=== PATIENT | male | born 1965 | race Caucasian/White ===

== ENCOUNTER 2020-09-02 14:06 | Inpatient (IN) | payer MEDICARE ==
[~2020-09-02] VITALS: Ht 177.8 cm; Wt 112.2 kg
[2020-09-02 15:42] LABS: HEMOGLOBIN 15.1 gm/dl (14.0-17.5); RED BLOOD COUNT 4.66 M/UL (4.20-5.50); WHITE BLOOD COUNT 11.3 K/UL (4.5-11.0)
[2020-09-02 15:58] LABS: BUN/CREATININE RATIO 30 (0-10)
[2020-09-02] MEDS ORDERED: LOPRESSOR 25 MG25 MG PO (21:21)
[2020-09-02] MEDS ORDERED: XARELTO20 MG PO (21:21)
[2020-09-02] MEDS ORDERED: LASIX40 MG PO (21:22)
[2020-09-02] MEDS ORDERED: LISINOPRIL5 MG PO (21:23)
[2020-09-02] MEDS ORDERED: DULOXETINE HCL60 MG PO (21:24)
[2020-09-02] MEDS ORDERED: HYDROXYZINE HCL25 MG PO (21:24)
[2020-09-03 02:39] LABS: HEMOGLOBIN 14.2 gm/dl (14.0-17.5); RED BLOOD COUNT 4.45 M/UL (4.20-5.50); WHITE BLOOD COUNT 13.5 K/UL (4.5-11.0)
--- NOTE | 2020-09-03 02:50 | NUR ---
MD VISITED FLOOR AT THIS TIME. LOOKED AT PATIENT AND SEEN HIGH RESPIRATIONS. NO NEW ORDER WAS GIVEN.
[2020-09-03 05:32] LABS: ACINETOBACTER BAUMANNII Not Detected (Negative); CANDIDA ALBICANS Not Detected (Negative); CANDIDA KRUSEI Not Detected (Negative); CANDIDA TROPICALIS Not Detected (Negative); ENTEROCOCCUS Not Detected (Negative); ESCHERICHIA COLI Not Detected (Negative); HAEMOPHILUS INFLUENZAE Not Detected (Negative); KLEBSIELLA OXYTOCA Not Detected (Negative); KLEBSIELLA PNEUMONIAE Not Detected (Negative); KPC-CARBAPENEM-RESISTANCE GENE Not Detected (Negative); PROTEUS Not Detected (Negative); PSEUDOMONAS AERUGINOSA Not Detected (Negative); SERRATIA MARCESANS Not Detected (Negative); STREP AGALACTIAE (GROUP B) Not Detected (Negative); STREP PYOGENES (GROUP A) Not Detected (Negative); STREPTOCOCCUS Not Detected (Negative); mecA (METHICILLIN RESIST GENE Not Detected (Negative); vanA/B (VANCOMYCIN RESIST GENE Not Detected (Negative)
[2020-09-03 06:49] LABS: STAPHYLOCOCCUS DETECTED (Negative); STAPHYLOCOCCUS AUREUS DETECTED (Negative)
[2020-09-03 14:52] LABS: BORDETELLA PARAPERTUSSIS Not Detected (Not Detectd); BORDETELLA PERTUSSIS Not Detected (Not Detectd); CHLAMYDIA PNEUMONIAE Not Detected (Not Detectd); CORONAVIRUS HKU1 Not Detected (Not Detectd); CORONAVIRUS NL63 Not Detected (Not Detectd); CORONAVIRUS OC43 Not Detected (Not Detectd); CORONOAVIRUS 229E Not Detected (Not Detectd); HUMAN METAPNEUMOVIRUS Not Detected (Not Detectd); HUMAN RHINOVIRUS/ENTEROVIRUS Not Detected (Not Detectd); INFLUENZA A Not Detected (Not Detectd); INFLUENZA B Not Detected (Not Detectd); MYCOPLASMA PNEUMONIAE Not Detected (Not Detectd); PARAINFLUENZA VIRUS 1 Not Detected (Not Detectd); PARAINFLUENZA VIRUS 2 Not Detected (Not Detectd); PARAINFLUENZA VIRUS 3 Not Detected (Not Detectd); PARAINFLUENZA VIRUS 4 Not Detected (Not Detectd); RESPIRATORY SYNCYTIAL VIRUS Not Detected (Not Detectd)
[2020-09-03 16:25] LABS: SARS-CoV-2 NOT DETECTED (Not Detectd)
[2020-09-04 05:16] LABS: BUN/CREATININE RATIO 43 (0-10)
[2020-09-04 21:26] LABS: HEMOGLOBIN 15.4 gm/dl (14.0-17.5); WHITE BLOOD COUNT 12.4 K/UL (4.5-11.0)
[2020-09-04 21:35] LABS: RED BLOOD COUNT 4.92 M/UL (4.20-5.50)
[2020-09-04 21:55] LABS: BUN/CREATININE RATIO 39 (0-10)
[2020-09-05 04:44] LABS: BUN/CREATININE RATIO 34 (0-10)
[2020-09-06 02:27] LABS: HEMOGLOBIN 13.9 gm/dl (14.0-17.5); WHITE BLOOD COUNT 13.8 K/UL (4.5-11.0)
[2020-09-06 02:28] LABS: RED BLOOD COUNT 4.35 M/UL (4.20-5.50)
[2020-09-06 02:55] LABS: BUN/CREATININE RATIO 33 (0-10)
[2020-09-07 02:46] LABS: HEMOGLOBIN 13.1 gm/dl (14.0-17.5); RED BLOOD COUNT 4.18 M/UL (4.20-5.50); WHITE BLOOD COUNT 11.4 K/UL (4.5-11.0)
[2020-09-07 03:03] LABS: BUN/CREATININE RATIO 27 (0-10)
[2020-09-08 02:39] LABS: HEMOGLOBIN 13.2 gm/dl (14.0-17.5); RED BLOOD COUNT 4.14 M/UL (4.20-5.50); WHITE BLOOD COUNT 14.9 K/UL (4.5-11.0)
[2020-09-08 03:23] LABS: BUN/CREATININE RATIO 22 (0-10)
[2020-09-09 05:02] LABS: RED BLOOD COUNT 4.1 M/UL (4.20-5.50); WHITE BLOOD COUNT 12.3 K/UL (4.5-11.0)
[2020-09-09 05:44] LABS: BUN/CREATININE RATIO 25 (0-10)
--- NOTE | 2020-09-09 11:00 | NUR ---
10:35 DR DONATO HERE TO DO ROXANNA, 10:37 2MG VERSED GIVEN, 10:38 25MCG FENTANYL GIVEN, 10:39 PROCEDURE STARTED, 10:42 1MG VERSED GIVEN, BUBBLE STUDY DONE, 10:50 PROCEDURE ENDED. NO NEW ORDERS REC'D. WILL CONTINUE TO MONITOR PT
[2020-09-10 02:40] LABS: HEMOGLOBIN 12.4 gm/dl (14.0-17.5); RED BLOOD COUNT 3.92 M/UL (4.20-5.50); WHITE BLOOD COUNT 9.5 K/UL (4.5-11.0)
[2020-09-10 03:02] LABS: BUN/CREATININE RATIO 24 (0-10)
[2020-09-11 03:15] LABS: HEMOGLOBIN 11.3 gm/dl (14.0-17.5); RED BLOOD COUNT 3.6 M/UL (4.20-5.50); WHITE BLOOD COUNT 9.8 K/UL (4.5-11.0)
--- NOTE | 2020-09-11 03:27 | NUR ---
Report was called to Kathya at [facility] at 2223. Once report was called, house officer, Chasity, was called to verify how to get transport. Chasity advised me to call EMS and see what they said about the transfer; if they would be able to drive or if they needed to look into flying the patient out. EMS was called at 2237. I spoke with the Captain who told me that they did not have a crew tonight due to they had been working all day and that the earliest would be in the morning since one way was a [address]. pipe and test supervisor was then called at 2239. I passed on what EMS had told me. EMS was then called back at 2242 to verify that it would be able to be added to the list in the morning for the patient to be transported. House was then called again at 2246 to pass on the message that EMS could add the patient to the list. Chasity then asked me if I would call the doctor (Thaddeus Flores) and see if he would rather the patient be flown out, or if it was okay for the patient to wait until AM. Dr Flores was called at 2248 and I explained the situation. Dr Flores stated the patient was stable enough to stay over night to be driven by EMS as long as the bed would not be taken from the patient at [facility]. Dr Flores asked me to called [facility] to make sure that the patient would not lose their bed if they were unable to be transported until morning. [facility] was then called at 225. They stated that the patient was pending and the bed would would not be taken, that the bed would still stay with the patient. pipe and test supervisor was then called to relay the message that Mark was okay with the patient staying here for the night and would rather him be taken by EMS and that [facility] verified that the bed would not be taken from the patient. EMT was then called back at 231 to make sure that the patient can be added to the list for transfer in the AM for the patient to be sent to [facility]. They stated that it would be have to be approved by [facility] to make sure theres not a hospital before then that could do the procedure, but that they would pass it on to Swetha, their field supervisor seed production, who comes on to shift at 0800. Adithya was on the floor during this time and I told her about what EMS said and asked if there was anything else I needed to do or could do. Chasity stated that I had done everything and that it would have to be figured out by EMS in the morning. I then called [facility] at 2336 to update them on all that had been going on and that the patient would not be there tonight, but hopefully sometime after noon on 09/11.
[2020-09-11 03:32] LABS: BUN/CREATININE RATIO 23 (0-10)
--- NOTE | 2020-09-11 08:29 | NUR ---
SPOKE WITH DISPATCH AT [facility] RE TRANSPORT TO [facility] AND THEY STATE THEY WILL HAVE TO CALL BACK
== END 2020-09-11 10:30 | DRG 314 ==
LOC: ER1 14:06 → CDU 16:47 → PROG CARE 16:47
PROVIDERS: Internal Medicine; Preventive Medicine Occupational Medicine; ADMIT Internal Medicine
PROC: 3E0333Z Introduction of Anti-inflammatory into Peripheral Vein, Percutaneous Approach (ICD-10-PCS; principal; 2020-09-02)
PROC: B24BZZ4 Ultrasonography of Heart with Aorta, Transesophageal (ICD-10-PCS; 2020-09-03)
DX: T82.7XXA Infection and inflammatory reaction due to other cardiac and vascular devices, implants and grafts, initial encounter (principal); A41.01 Sepsis due to Methicillin susceptible Staphylococcus aureus; I33.0 Acute and subacute infective endocarditis; J96.01 Acute respiratory failure with hypoxia; J69.0 Pneumonitis due to inhalation of food and vomit; G93.41 Metabolic encephalopathy; R65.20 Severe sepsis without septic shock; L97.918 Non-pressure chronic ulcer of unspecified part of right lower leg with other specified severity; E87.1 Hypo-osmolality and hyponatremia; N17.9 Acute kidney failure, unspecified; I13.0 Hypertensive heart and chronic kidney disease with heart failure and stage 1 through stage 4 chronic kidney disease, or unspecified chronic kidney disease; E87.2 Acidosis; I50.22 Chronic systolic (congestive) heart failure; K76.6 Portal hypertension; Z20.822 Contact with and (suspected) exposure to COVID-19; R79.1 Abnormal coagulation profile; F41.9 Anxiety disorder, unspecified; Y83.8 Other surgical procedures as the cause of abnormal reaction of the patient, or of later complication, without mention of misadventure at the time of the procedure; E78.5 Hyperlipidemia, unspecified; I08.3 Combined rheumatic disorders of mitral, aortic and tricuspid valves; I48.0 Paroxysmal atrial fibrillation; N18.9 Chronic kidney disease, unspecified; F10.10 Alcohol abuse, uncomplicated; G89.29 Other chronic pain; K70.30 Alcoholic cirrhosis of liver without ascites; D69.6 Thrombocytopenia, unspecified; F17.210 Nicotine dependence, cigarettes, uncomplicated; I25.10 Atherosclerotic heart disease of native coronary artery without angina pectoris; B95.61 Methicillin susceptible Staphylococcus aureus infection as the cause of diseases classified elsewhere; Z86.718 Personal history of other venous thrombosis and embolism; Z79.01 Long term (current) use of anticoagulants; Z79.82 Long term (current) use of aspirin; Z95.5 Presence of coronary angioplasty implant and graft
CPT/HCPCS: ECHO; 0240U; 36415; 36600; 71045; 71250; 73610; 80048; 80053; 80202; 80307; 81001; 82009; 82550; 82553; 82570; 82803; 82962; 83605; 83690; 83735; 83874; 83880; 84100; 84132; 84156; 84484; 85025; 85027; 85049; 85610; 85652; 86140; 87040; 87070; 87077; 87086; 87150; 87186; 87205; 87633; 93005; 93306; 94760; 96374; 96375; 97110; 97110-GP-CQ; 97162; 97167; 97530; 97530-GP-CQ; 97535; 99285; G0480; J0456; J0696; J1100; J1335; J1630; J1650; J1940; J2060; J2250; J2405; J2543; J2700; J3010; J3370; J3480; J7030; J7050; J7070